=== PATIENT | female | born 1945 | race Asian ===

== ENCOUNTER 2024-07-02 01:27 | Inpatient (IN) | payer MEDICARE ==
[~2024-07-02] VITALS: Ht 142.2 cm; Wt 54.4 kg
[2024-07-02 02:51] LABS: ADD URINE CULTURE YES; APPEARANCE,URINE CLEAR (CLEAR); BACTERIA,URINE Few /HPF (None Seen); BILIRUBIN,URINE NEGATIVE (NEGATIVE); BLOOD, URINE 1+ Ery/uL (NEGATIVE); COLOR,URINE YELLOW (YELLOW); KETONES,URINE NEGATIVE (NEGATIVE); LEUKOCYTE ESTERASE ,URINE 2+ (NEGATIVE); NITRITE, URINE NEGATIVE (NEGATIVE); PROTEIN,URINE NEGATIVE (NEGATIVE); SQUAMOUS EPITHELIAL CELL,UR Rare /HPF (None Seen); UGLUCOSE NEGATIVE (NEGATIVE); UROBILINOGEN,URINE 0.2 EU/dL (0.2)
[2024-07-02 02:57] LABS: BASOPHILS % (AUTO) 0.7 % (0.0-2.0); EOSINOPHILS # (AUTO) 0.1 K/uL (0.0-0.7); EOSINOPHILS % (AUTO) 2.5 % (0.0-6.0); HEMATOCRIT 34 % (33-45); HEMOGLOBIN 10.6 g/dL (11.5-14.8); LYMPHOCYTES # (AUTO) 0.9 K/uL (0.8-4.8); LYMPHOCYTES % (AUTO) 22.1 % (20.0-44.0); MEAN CORPUSCULAR HEMOGLOBIN 30 PG (26.0-33.0); MEAN CORPUSCULAR HGB CONC 32 g/dl (31.0-36.0); MEAN CORPUSCULAR VOLUME 93 fL (82-100); MONOCYTES # (AUTO) 0.7 K/uL (0.1-1.30); MONOCYTES % (AUTO) 17.4 % (2.0-12.0); NEUTROPHILS # (AUTO) 2.4 K/uL (1.8-8.9); NEUTROPHILS % (AUTO) 57.3 % (43.0-81.0); PLATELET COUNT (AUTO) 161 K/uL (150-450); RED CELL DISTRIBUTION WIDTH 15.3 % (11.5-15.0); WHITE BLOOD COUNT (AUTO) 4.2 K/uL (4.3-11.0)
[2024-07-02 03:06] LABS: CALCIUM, SERUM 9.4 mg/dL (8.5-10.1); CARBON DIOXIDE 26 mmol/L (21-32); CHLORIDE 104 mmol/L (98-107); CREATININE 0.9 mg/dL (0.6-1.3); GLUCOSE 106 mg/dL (74-106); POTASSIUM 3.8 mmol/L (3.5-5.1); SODIUM SERUM 140 mmol/L (136-145); UREA NITROGEN, BLOOD 26 mg/dL (7-18)
[2024-07-02 03:13] LABS: ALANINE AMINOTRANSFERASE 18 U/L (12-78); ALBUMIN 3.5 g/dL (3.4-5.0); ALKALINE PHOSPHATASE 68 U/L (46-116); ASPARTATE AMINOTRANSFERASE 17 U/L (15-37); BILIRUBIN,TOTAL 0.4 mg/dL (0.2-1.0); TOTAL PROTEIN, SERUM 7.3 g/dL (6.4-8.2)
[2024-07-02] MEDS: IV NS 0.9% 1,000 ML IV ONE (03:40)
[2024-07-02] MEDS ORDERED: MAG HYDROX/AL HYDROX/SIMETH 30 ML UDC PO PRN (04:00)
[2024-07-02] MEDS ORDERED: ONDANSETRON HCL/PF 4 MG/2 ML VIAL IVP PRN (04:00)
[2024-07-02] MEDS ORDERED: MAGNESIUM HYDROXIDE 30 ML UDC PO PRN (04:00)
[2024-07-02] MEDS ORDERED: Z GUARD REMEDY 4 OZ OINT TP PRN (04:00)
[2024-07-02] MEDS: MAG HYDROX/AL HYDROX/SIMETH 30 ML UDC PO STA (04:45)
[2024-07-02] MEDS ORDERED: MAG HYDROX/AL HYDROX/SIMETH 30 ML UDC ONE (04:46)
[2024-07-02] MEDS ORDERED: LEVOFLOXACIN 500 MG /D5W 100ML 100 ML IV ONE (04:46)
[2024-07-02] MEDS: LEVOFLOXACIN 500 MG /D5W 100ML 500 MG/100 ML PIGGYBACK IV ONE (04:48)
[2024-07-02 08:00] VITALS: BP 132/56; TEMP 97.9; O2SAT 98
[2024-07-02] MEDS: CEFTRIAXONE 1 G in IV D5W 50 ML IV SCH (08:43)
[2024-07-02] MEDS: ENOXAPARIN SODIUM 30 MG/0.3 ML DISP.SYRIN SQ SCH (13:35)
[2024-07-02 16:00] VITALS: BP 141/64; TEMP 97.9; O2SAT 98
[2024-07-02] MEDS: MENTHOL/CETYLPYRD (CEPACOL) 1 LOZ LOZENGE PO PRN (16:22)
[2024-07-02] MEDS ORDERED: ASPI-1420 PO (19:04)
[2024-07-02] MEDS ORDERED: CHOL100062 PO (19:04)
[2024-07-02] MEDS ORDERED: ACET-637 PO (19:04)
[2024-07-02] MEDS ORDERED: CYAN100096 PO (19:04)
[2024-07-02] MEDS ORDERED: ASCO-352 PO (19:04)
[2024-07-02] MEDS ORDERED: MELO-105 PO (19:04)
[2024-07-02] MEDS ORDERED: PANT40TA49 PO (19:04)
[2024-07-02] MEDS ORDERED: PRED2.5T PO (19:04)
[2024-07-02] MEDS ORDERED: CALC-1198 PO (19:04)
[2024-07-02] MEDS ORDERED: FLUO10CA29 PO (19:04)
[2024-07-02] MEDS ORDERED: VITA400C74 PO (19:04)
[2024-07-02] MEDS ORDERED: EZET10TA32 PO (19:04)
[2024-07-02] MEDS ORDERED: AMLO-212 PO (19:04)
[2024-07-02] MEDS ORDERED: METO25TA4 PO (19:04)
[2024-07-03 04:24] VITALS: BP 110/70; TEMP 98.2
[2024-07-03 06:46] LABS: BASOPHILS % (AUTO) 0.8 % (0.0-2.0); EOSINOPHILS # (AUTO) 0.1 K/uL (0.0-0.7); EOSINOPHILS % (AUTO) 4.3 % (0.0-6.0); HEMATOCRIT 31 % (33-45); HEMOGLOBIN 10.5 g/dL (11.5-14.8); LYMPHOCYTES # (AUTO) 0.6 K/uL (0.8-4.8); MEAN CORPUSCULAR HEMOGLOBIN 31 PG (26.0-33.0); MEAN CORPUSCULAR HGB CONC 34 g/dl (31.0-36.0); MEAN CORPUSCULAR VOLUME 91 fL (82-100); MONOCYTES # (AUTO) 0.5 K/uL (0.1-1.30); MONOCYTES % (AUTO) 15.5 % (2.0-12.0); NEUTROPHILS # (AUTO) 1.9 K/uL (1.8-8.9); NEUTROPHILS % (AUTO) 59.4 % (43.0-81.0); PLATELET COUNT (AUTO) 163 K/uL (150-450); RED BLOOD CELL COUNT(AUTO) 3.43 MIL/uL (4.0-5.2); RED CELL DISTRIBUTION WIDTH 14.8 % (11.5-15.0); WHITE BLOOD COUNT (AUTO) 3.2 K/uL (4.3-11.0)
[2024-07-03 07:00] VITALS: BP 137/63; TEMP 98.1; O2SAT 97
[2024-07-03 07:33] LABS: CALCIUM, SERUM 9.1 mg/dL (8.5-10.1); CARBON DIOXIDE 28 mmol/L (21-32); CHLORIDE 108 mmol/L (98-107); CREATININE 0.8 mg/dL (0.6-1.3); GLUCOSE 92 mg/dL (74-106); POTASSIUM 3.9 mmol/L (3.5-5.1); SODIUM SERUM 143 mmol/L (136-145); UREA NITROGEN, BLOOD 20 mg/dL (7-18)
[2024-07-03] MEDS ORDERED: LEVOFLOXACIN 250 MG /D5W 50 ML 250 MG in PREMIX 1 EA IV SCH (09:00)
[2024-07-03] MEDS ORDERED: LEVOFLOXACIN 500 MG /D5W 100ML 500 MG in PREMIX 1 EA IV SCH (09:00)
[2024-07-03 16:00] VITALS: BP 115/69; TEMP 97.2; O2SAT 98
[2024-07-03] MEDS: ACETAMINOPHEN 325 MG TABLET PO PRN (16:30)
[2024-07-03 20:00] VITALS: BP 105/46; TEMP 97.7; O2SAT 96
[2024-07-04 06:37] LABS: BASOPHILS % (AUTO) 1.1 % (0.0-2.0); EOSINOPHILS # (AUTO) 0.2 K/uL (0.0-0.7); EOSINOPHILS % (AUTO) 7.3 % (0.0-6.0); HEMATOCRIT 31 % (33-45); HEMOGLOBIN 10.2 g/dL (11.5-14.8); LYMPHOCYTES # (AUTO) 0.7 K/uL (0.8-4.8); LYMPHOCYTES % (AUTO) 25.8 % (20.0-44.0); MEAN CORPUSCULAR HEMOGLOBIN 30 PG (26.0-33.0); MEAN CORPUSCULAR HGB CONC 33 g/dl (31.0-36.0); MEAN CORPUSCULAR VOLUME 93 fL (82-100); MONOCYTES # (AUTO) 0.5 K/uL (0.1-1.30); MONOCYTES % (AUTO) 16.8 % (2.0-12.0); NEUTROPHILS # (AUTO) 1.4 K/uL (1.8-8.9); PLATELET COUNT (AUTO) 167 K/uL (150-450); RED BLOOD CELL COUNT(AUTO) 3.35 MIL/uL (4.0-5.2); RED CELL DISTRIBUTION WIDTH 15.3 % (11.5-15.0); WHITE BLOOD COUNT (AUTO) 2.8 K/uL (4.3-11.0)
[2024-07-04 06:56] LABS: CALCIUM, SERUM 8.9 mg/dL (8.5-10.1); CARBON DIOXIDE 25 mmol/L (21-32); CHLORIDE 108 mmol/L (98-107); CREATININE 0.9 mg/dL (0.6-1.3); GLUCOSE 88 mg/dL (74-106); SODIUM SERUM 143 mmol/L (136-145); UREA NITROGEN, BLOOD 22 mg/dL (7-18)
[2024-07-04 07:00] VITALS: BP 154/84; TEMP 98.1; O2SAT 99
[2024-07-04 16:00] VITALS: BP 141/70; TEMP 97; O2SAT 97
[2024-07-04 20:00] VITALS: BP 107/46; TEMP 98.1; O2SAT 99
[2024-07-05 07:30] VITALS: BP 149/64; TEMP 97.5; O2SAT 97
[2024-07-05 16:00] VITALS: BP 137/63; TEMP 98.2; O2SAT 98
[2024-07-05] MEDS: EZETIMIBE 10 MG TABLET PO SCH (18:41)
[2024-07-05] MEDS: Fluoxetine 10 mg capsule PO SCH (19:27)
[2024-07-05] MEDS: MELOXICAM 7.5 MG TABLET PO SCH (19:28)
[2024-07-05] MEDS: METOPROLOL SUCCINATE 25 MG TAB.SR.24H PO SCH (19:28)
[2024-07-05 20:00] VITALS: BP 123/67; TEMP 97.9; O2SAT 95
[2024-07-05 20:45] VITALS: BP 123/69; TEMP 97.9; O2SAT 95
[2024-07-06 07:30] VITALS: BP 144/65; TEMP 97.7; O2SAT 98
[2024-07-06] MEDS: predniSONE 5 MG TABLET PO SCH (08:16)
[2024-07-06] MEDS: PANTOPRAZOLE 40 MG TABLET.DR PO SCH (08:16)
[2024-07-06 08:17] VITALS: BP 144/65
[2024-07-06] MEDS: AMLODIPINE BESYLATE 5 MG TABLET PO SCH (08:17)
[2024-07-06] MEDS: ASPIRIN EC 81 MG TABLET.DR PO SCH (08:17)
== END 2024-07-06 14:18 | DRG 690 ==
LOC: ER 01:58 → MED 03:39
PROVIDERS: ADMIT Internal Medicine; ATTEND Internal Medicine
DX: N39.0 Urinary tract infection, site not specified (principal); R62.7 Adult failure to thrive; I10 Essential (primary) hypertension; D64.9 Anemia, unspecified; B95.2 Enterococcus as the cause of diseases classified elsewhere; Z68.26 Body mass index [BMI] 26.0-26.9, adult
CPT/HCPCS: 36415; 71045-TC; 80048-TC; 80053-TC; 81001; 85025-TC; 87040-TC; 87086-TC; 97110-TC; 97116-TC; 97530-TC; A4223; G0378; J0696; J1650; J1956; J7030; J7050; J7060; J7512